=== PATIENT | female | born 1935 | race Caucasian/White ===

== ENCOUNTER 2017-10-27 10:35 | Inpatient (IN) | payer MEDICARE, BC ==
[~2017-10-27] VITALS: Ht 162.6 cm; Wt 72.6 kg
[2017-10-27] MEDS ORDERED: CLONIDINE HCL 0.2 MG TAB PO ONE (11:00)
[2017-10-27 11:22] LABS: BASOPHILS % 0.6 % (0.0-1.0); EOSINOPHILS # (AUTO) 0.1 (0.0-0.4); EOSINOPHILS % 1.6 % (0.0-6.0); HEMATOCRIT 43.6 % (34.2-44.1); HEMOGLOBIN 14.8 g/dL (12.0-16.0); LYMPHOCYTES % 16.4 % (18.0-39.1); MEAN CORPUSCULAR HEMOGLOBIN 34.3 pg (28-32); MEAN CORPUSCULAR HGB CONC 33.9 g/dL (31-35); MEAN CORPUSCULAR VOLUME 101.2 fL (81-99); MONOCYTES # (AUTO) 0.5 (0.2-0.8); MONOCYTES % 8.2 % (4.4-11.3); NEUTROPHILS # (AUTO) 4.5 (2.1-6.9); NEUTROPHILS % 72.7 % (38.7-80.0); PLATELET COUNT 164 x10e3/uL (140-360); RED BLOOD COUNT 4.31 x10e6/uL (3.6-5.1); RED CELL DISTRIBUTION WIDTH 13.4 % (11.7-14.4)
[2017-10-27 11:28] LABS: BILIRUBIN,URINE NEGATIVE (NEGATIVE); INR 1.28; KETONES,URINE NEGATIVE (NEGATIVE); LEUKOCYTE ESTERASE ,URINE NEGATIVE (NEGATIVE); NITRITE,URINE NEGATIVE (NEGATIVE); PROTHROMBIN TIME 16.7 seconds (11.9-14.5); URINE UROBILINOGEN 0.2 mg/dL (0.2 - 1)
[2017-10-27 11:29] LABS: PARTIAL THROMBOPLASTIN TIME 37.4 seconds (23.8-35.5)
[2017-10-27 11:31] LABS: PROTEIN,URINE DIPSTICK 2+ (NEGATIVE)
[2017-10-27 11:32] LABS: COLOR,URINE YELLOW (YELLOW)
[2017-10-27 11:39] LABS: ALBUMIN 3.8 g/dL (3.5-5.0); ANION GAP 15.2 mmol/L (8-16); CALCIUM 9.8 mg/dL (8.4-10.2); CREATININE, SERUM 1.25 mg/dL (0.57-1.11); POTASSIUM 4.2 mmol/L (3.5-5.1)
[2017-10-27 11:48] LABS: CLARITY,URINE CLEAR (CLEAR)
[2017-10-27 11:52] LABS: CREATINE KINASE MB 1.1 ng/mL (0.00-5.00); TROPONIN I 0.024 ng/mL (0-0.300)
[2017-10-27] MEDS ORDERED: IMIPRAMINE HCL25 MG PO (12:01)
[2017-10-27] MEDS ORDERED: METOPROLOL SUCCINATE (12:01)
[2017-10-27] MEDS ORDERED: POTASSIUM CHLORIDE (12:01)
[2017-10-27] MEDS ORDERED: NIACIN (12:01)
[2017-10-27] MEDS ORDERED: MECLIZINE HCL12.5 MG PO (12:01)
[2017-10-27] MEDS ORDERED: DONEPEZIL (12:01)
[2017-10-27] MEDS ORDERED: DILTIAZEM (12:01)
[2017-10-27] MEDS ORDERED: VESICARE (12:01)
[2017-10-27] MEDS ORDERED: ELIQUIS (12:01)
[2017-10-27] MEDS ORDERED: VITAMIN B-12 (12:01)
--- NOTE | 2017-10-27 12:20 | Diagnostic Imaging Report ---
PROCEDURE:CHEST SINGLE (PORTABLE) TECHNIQUE:Portable AP chest INDICATION:Shortness of breath, cough and nausea with diarrhea. COMPARISON:None. FINDINGS: Trace pleural effusions (left greater than right) with bibasilar airspace opacities and mild central vascular prominence. Enlarged cardiac silhouette. Prominent right heart mobile. Intact skeleton. CONCLUSION: 1. Cardiomegaly with vascular congestion. Bibasilar airspace opacities may represent developing pulmonary edema and/or pneumonia in the appropriate context. 2. Prominent right heart margin which may be secondary to right middle lobe airspace disease, right atrial enlargement or prominent fat-pad. 2 view chest radiograph recommended when feasible. Dictated by: Maury Galeas M.D. on 10/27/2017 at 12:27 Electronically approved by: Maury Galeas M.D. on 10/27/2017 at 12:27
[2017-10-27 16:15] VITALS: BP 159/96
[2017-10-27 17:05] VITALS: BP 159/96
[2017-10-27] MEDS: FUROSEMIDE INJ 10 MG/ML 4 ML VIAL IV SCH (17:24)
[2017-10-27] MEDS: LOSARTAN POTASSIUM 25 MG TAB PO SCH (17:24)
[2017-10-27] MEDS: APIXABAN 5 MG TABLET PO SCH (17:24)
[2017-10-27] MEDS: CARVEDILOL 12.5 MG TAB PO SCH (17:25)
[2017-10-27 18:41] LABS: CREATINE KINASE MB 1.1 ng/mL (0.00-5.00); TROPONIN I 0.042 ng/mL (0-0.300)
--- NOTE | 2017-10-27 19:13 | Consultation ---
DATE OF CONSULTATION: October 27, 2017 Thank you so much for asking me to see this nice lady in consultation. CHIEF COMPLAINT: Ms. Lerner is a charming 82-year-old lady who came to the emergency room today with a complaint of orthopnea and dyspnea. HISTORY OF PRESENT ILLNESS: The patient reports that about the last 3 tor 4 days she has noticed that she gets short of breath when she exerts herself and has not been able to lie down to sleep for the last 2 nights because of shortness of breath. She denies any chest pain or excessive palpitations. PAST MEDICAL HISTORY: Significant for previous diagnosis of atrial fibrillation. She reports she takes Eliquis for this and does but does not have any knowledge of any underlying cause or specific treatments. She reports that she uses a water pill some times, but does not name the pill and does not use it on a regular basis unless she sees ankle swelling. She reports that her family doctor, Dr. Mayes, has added metoprolol and diltiazem lately. She lists medications of Eliquis 5 mg b.i.d., imipramine, meclizine, metoprolol and diltiazem, although she does not know the doses. She reports that she has taken some niacin that causes flushing and is very unpleasant. PAST SURGICAL HISTORY: A cholecystectomy and hysterectomy. REVIEW OF SYSTEMS: GASTROINTESTINAL: Negative. PULMONARY: Negative. ENDOCRINE: The patient has had some thyroid problems in the past. PHYSICAL EXAMINATION: GENERAL: Shows a pleasant elderly white woman who is comfortable, alert oriented and conversant. VITALS: Blood pressure 150/80, pulse is 90 and irregular. HEENT: Unremarkable. NECK: No jugular venous distention. THORAX: Heart sounds S1 and S2 are equal but irregularly irregular with no distinct murmur. LUNGS: Bibasilar crackles. ABDOMEN: Protuberant. EXTREMITIES: Trace pretibial edema. PERTINENT LABORATORY DATA: BNP of 893 with BUN 21 and creatinine 1.25. Bilirubin is 1.6. CBC relatively unremarkable with the exception of MCV of 101. Urinalysis shows 2+ protein and trace blood. Coags show a prothrombin time of 16.7 seconds. INR 1.28. Chest x-ray shows cardiomegaly. ASSESSMENT: 1. Recent onset of congestive heart failure symptoms. 2. Chronic atrial fibrillation. 3. Mild renal insufficiency. 4. Elevation of liver enzymes possibly passive congestion. PLAN: Agree with diuresis and will initiate losartan and carvedilol. Will continue her Eliquis. Check echocardiogram and Cardiolite. Thank you for asking me to see her in consultation. Job#: [id number] SHAINA
[2017-10-27 20:00] VITALS: BP 136/83
[2017-10-27] MEDS ORDERED: DILTIAZEM HCL90 MG PO (23:45)
[2017-10-27] MEDS ORDERED: METOPROLOL SUC100 MG PO (23:45)
[2017-10-27] MEDS ORDERED: DONEPEZIL HCL5 MG PO (23:45)
[2017-10-27] MEDS ORDERED: VESICARE10 MG PO (23:45)
[2017-10-27] MEDS ORDERED: NIASPAN500 MG PO (23:45)
[2017-10-27] MEDS ORDERED: POTASSIUM CHLO10 MEQ PO (23:45)
[2017-10-28] VITALS: BP 143/79
--- NOTE | 2017-10-28 01:23 | Diagnostic Imaging Report ---
EXAM: CT Chest WITHOUT contrast 10/27/2017 11:19 PM INDICATION: Shortness of breath COMPARISON: Chest x-ray on 10/27/2017 TECHNIQUE: Chest was scanned utilizing a multidetector helical scanner from the lung apex through the level of the adrenal glands without administration of IV contrast. Absence of intravenous contrast decreases sensitivity for detection of lymphadenopathy and vascular pathology. Coronal and sagittal reformations were obtained. Routine protocol was performed. IV CONTRAST: None RADIATION DOSE: Total DLP: 512.56 mGy*cm Estimated effective dose: (DLP x 0.014 x size factor) mSv COMPLICATIONS: None FINDINGS: LINES/ TUBES: None. LUNGS AND AIRWAYS: The lungs are unremarkable. Airways are normal. PLEURA: Small bilateral pleural effusions right greater than left HEART AND MEDIASTINUM: The thyroid gland is diffusely enlarged, nodular. Small, numerous prevascular and right lower paratracheal lymph nodes present. The heart is normal in size.. There is a moderate pericardial effusion. There are mild atherosclerotic calcifications in the aorta and coronary arteries. UPPER ABDOMEN: Nodular liver suspicious for cirrhosis. BONES: The visualized bony thorax is within normal limits. SOFT TISSUES: Unremarkable. IMPRESSION: 1. Moderate pericardial and small bilateral pleural effusions. 2. Mild enlargement of the heart without evidence of edema. Signed by: Dr. Harjit Escoto M.D. on 10/28/2017 1:19 AM
[2017-10-28 04:00] VITALS: BP 146/88
[2017-10-28 06:37] LABS: ANION GAP 15.5 mmol/L (8-16); CALCIUM 9.5 mg/dL (8.4-10.2); CREATININE, SERUM 1.36 mg/dL (0.57-1.11); POTASSIUM 3.5 mmol/L (3.5-5.1)
[2017-10-28 07:01] LABS: THYROID STIMULATING HORMONE 1.138 uIU/mL (0.350-4.940)
[2017-10-28 08:00] VITALS: BP 155/99
[2017-10-28] MEDS: FUROSEMIDE INJ 10 MG/ML 4 ML VIAL IV SCH ×2 (08:41→16:37)
[2017-10-28] MEDS: LOSARTAN POTASSIUM 25 MG TAB PO SCH (08:42)
[2017-10-28] MEDS: CARVEDILOL 12.5 MG TAB PO SCH ×2 (08:42→16:37)
[2017-10-28] MEDS: APIXABAN 5 MG TABLET PO SCH ×2 (08:42→16:37)
[2017-10-28] MEDS ORDERED: REGADENOSON 0.4 MG/5 ML SYR IV ONE (09:34)
--- NOTE | 2017-10-28 19:28 | History and Physical ---
PRIMARY CARE PHYSICIAN: Fara CHIEF COMPLAINT: Acute congestive heart failure with rapid heart rate and dyspnea, both at rest and on exertion. HISTORY: This is an 82-year-old female with cardiac atrial fibrillation, on Eliquis. At baseline, the patient is stable. However, for the past few days the patient is having increasing shortness of breath especially at first with exertion and then subsequently at rest. Patient came into the hospital. CT of the chest showed that the patient has pericardial effusion with bilateral basilar effusion. The patient is admitted for further workup. PAST MEDICAL HISTORY: Atrial fibrillation. PAST SURGICAL HISTORY: Hysterectomy and cholecystectomy. SOCIAL HISTORY: Patient does not smoke or use alcohol. She lives with her . ALLERGIES: NO KNOWN ALLERGIES. HOME MEDICATIONS: Eliquis. REVIEW OF SYSTEMS: Increasing shortness of breath, both at rest and on exertion. Rapid heart rate with palpitations. PHYSICAL EXAMINATION VITAL SIGNS: Temperature 98, blood pressure 155/99, pulse rate 110, respirations 20. GENERAL: The patient is not in acute distress. HEENT: Normocephalic, atraumatic and anicteric. NECK: Supple grossly. Questionable JVD. PULMONARY: Diminished breath sounds bilaterally with distant heart sounds and rales at the bases. CARDIOVASCULAR: S1 and S2. Atrial fibrillation with rapid rate. ABDOMEN: Soft. EXTREMITIES: No cyanosis. Positive to trace to 1+ edema. NEUROLOGIC: There is no focal deficit. LABORATORY: WBC 6.2, hemoglobin 14.8, hematocrit 43.6, and platelets is 164,000. Chemistry: Sodium is 140, potassium 4.2, chloride 107, bicarb 22, BUN 22, creatinine 1.25, glucose is 103. BNP is 893. Troponin 0.024. B12 was 1573. TSH is 1.13. Coagulation: INR is 1.28. IMAGING: Chest x-ray and CT scan of the chest showed moderate pericardial and small bilateral pleural effusion. There is mild enlargement of the heart without evidence of edema. IMPRESSION 1. Acute congestive heart failure. 2. Pericardial effusion. 3. Shortness of breath, both at rest and on exertion. PLAN: Continue with diuresis. Replace potassium. Echocardiogram. Consultation with Dr. Raymond Sawyer. Continue with treatment. Check electrolytes. Will follow up with echocardiogram. Job#: [id number] MD
[2017-10-28] MEDS ORDERED: POTASSIUM CHLORIDE 10 MEQ TABCR PO ONE (19:30)
[2017-10-28 20:00] VITALS: BP 148/97
[2017-10-28] MEDS ORDERED: CARVEDILOL 12.5 MG TAB PO ONE ×2 (22:45→23:15)
[2017-10-29] VITALS: BP 110/70
[2017-10-29 04:00] VITALS: BP 141/76
[2017-10-29 06:15] LABS: BASOPHILS # (AUTO) 0.1 (0.0-0.1); EOSINOPHILS # (AUTO) 0.2 (0.0-0.4); EOSINOPHILS % 2.7 % (0.0-6.0); HEMATOCRIT 40.2 % (34.2-44.1); HEMOGLOBIN 13.6 g/dL (12.0-16.0); LYMPHOCYTES # (AUTO) 1.2 (1.0-3.2); LYMPHOCYTES % 19.2 % (18.0-39.1); MEAN CORPUSCULAR HEMOGLOBIN 33.9 pg (28-32); MEAN CORPUSCULAR HGB CONC 33.8 g/dL (31-35); MEAN CORPUSCULAR VOLUME 100.2 fL (81-99); MONOCYTES # (AUTO) 0.8 (0.2-0.8); MONOCYTES % 12.5 % (4.4-11.3); PLATELET COUNT 144 x10e3/uL (140-360); RED BLOOD COUNT 4.01 x10e6/uL (3.6-5.1); RED CELL DISTRIBUTION WIDTH 13.7 % (11.7-14.4)
[2017-10-29 06:32] LABS: ANION GAP 17.5 mmol/L (8-16); CALCIUM 9.4 mg/dL (8.4-10.2); CREATININE, SERUM 1.68 mg/dL (0.57-1.11); POTASSIUM 3.5 mmol/L (3.5-5.1)
[2017-10-29 08:00] VITALS: BP 115/55
[2017-10-29] MEDS: CARVEDILOL 12.5 MG TAB PO SCH ×2 (08:32→16:37)
[2017-10-29] MEDS ORDERED: POTASSIUM CHLORIDE 20 MEQ TAB CR PO SCH (09:00)
[2017-10-29] MEDS: APIXABAN 5 MG TABLET PO SCH ×2 (10:10→16:37)
[2017-10-29] MEDS ORDERED: FUROSEMIDE INJ 10 MG/ML 4 ML VIAL IV SCH (10:10)
[2017-10-29] MEDS: POTASSIUM CHLORIDE 20 MEQ TAB CR PO SCH (10:37)
[2017-10-29 12:00] VITALS: BP 112/85
[2017-10-29] MEDS: LOSARTAN POTASSIUM 25 MG TAB PO SCH (12:26)
--- NOTE | 2017-10-29 13:09 | Cardiology Report ---
DATE OF STUDY: October 28, 2017 LEXISCAN MYOVIEW ATTENDING PHYSICIAN: Dr. Boston Colby. Patient had resting perfusion images after an injection of 10.7 mCi of technetium 99 and Myoview. Later, due to inability to exercise, she was given 0.4 mg of Lexiscan intravenously and shortly afterwards 31 mCi of technetium 99 and Myoview. Perfusion images were taken by rotational tomography. Comparison of resting and Lexiscan stress images showed no evidence of any perfusion defect. There is a halo around the images suggesting the possibility of a pericardial effusion. Additionally, gated wall motion images were obtained and calculated ejection fraction normal at 80% without regional wall motion abnormalities. FINAL IMPRESSION 1. Normal perfusion by Lexiscan stress suggesting no ischemia and no scar. 2. Normal left ventricular function, ejection fraction 80%. 3. Halo around the cardiac images suggesting pericardial effusion. Job#: [id number] EV
[2017-10-29 16:16] VITALS: BP 129/83
[2017-10-29 20:00] VITALS: BP 128/76
[2017-10-30] VITALS: BP 138/83
[2017-10-30] MEDS: DICYCLOMINE HCL 10 MG CAP PO SCH ×3 (07:30→18:02)
[2017-10-30] MEDS: APIXABAN 5 MG TABLET PO SCH ×2 (09:00→18:05)
[2017-10-30] MEDS ORDERED: FUROSEMIDE 40 MG TAB PO SCH (09:00)
[2017-10-30] MEDS ORDERED: DILTIAZEM HCL 90 MG PO SCH (09:00)
[2017-10-30] MEDS ORDERED: FUROSEMIDE INJ 10 MG/ML 4 ML VIAL IV SCH (09:00)
[2017-10-30] MEDS: LOSARTAN POTASSIUM 25 MG TAB PO SCH (09:00)
[2017-10-30] MEDS ORDERED: DONEPEZIL HCL 5 MG TAB PO SCH (09:00)
[2017-10-30] MEDS ORDERED: POTASSIUM CHLORIDE 20 MEQ TAB CR PO SCH (09:00)
[2017-10-30] MEDS ORDERED: NON-FORMULARY MEDICATION (Metoprolol Succinate 100 MG) PO SCH (09:00)
[2017-10-30] MEDS ORDERED: MECLIZINE HCL 12.5 MG TAB PO SCH (09:00)
[2017-10-30] MEDS ORDERED: METOPROLOL SUCCINATE 50 MG TAB XL PO SCH (09:02)
[2017-10-30 09:38] VITALS: BP 138/78
[2017-10-30] MEDS: POTASSIUM CHLORIDE 20 MEQ TAB CR PO SCH (10:17)
[2017-10-30 16:24] VITALS: BP 128/83
[2017-10-30] MEDS ORDERED: DILTIAZEM HCL ER 90MG CAPSULE PO SCH (17:00)
== END 2017-10-30 18:59 | disposition home or self-care (01) | DRG 291 ==
LOC: ER 10:35 → ERHOLD 14:43 → MED/SURG2 15:13
PROVIDERS: ADMIT Internal Medicine; ATTEND Internal Medicine
DX: I13.0 Hypertensive heart and chronic kidney disease with heart failure and stage 1 through stage 4 chronic kidney disease, or unspecified chronic kidney disease (principal); I50.31 Acute diastolic (congestive) heart failure; I31.3 Pericardial effusion (noninflammatory); I48.2 Chronic atrial fibrillation; K76.1 Chronic passive congestion of liver; N28.9 Disorder of kidney and ureter, unspecified; Z28.21 Immunization not carried out because of patient refusal; Z79.01 Long term (current) use of anticoagulants; N18.9 Chronic kidney disease, unspecified
CPT/HCPCS: 36415; 71010; 71250; 78452; 80048; 80053; 81001; 82550; 82553; 82607; 83880; 84443; 84484; 85025; 85610; 85730; 93005; 93017; 93306; 96372; 96374; 96376; 99284; A9502; J1940